=== PATIENT | female | born 1960 | race Caucasian/White ===

== ENCOUNTER → 2017-04-17 | Outpatient (CLI) | payer OTHER ==
[~2017-04-17] MED LIST: ASPIRIN81 M2 PO; IMDUR60 MG PO; KEFLEX500 MG PO; NORVASC5 MG PO; OYSTER CAL 500500 MG PO; XANAX0.25 MG PO; ZOCOR80 MG PO
== END | disposition home or self-care (01) ==
LOC: MAMMO 07:25
DX: Z12.31 Encounter for screening mammogram for malignant neoplasm of breast (principal)

== ENCOUNTER 2018-01-05 15:48 | Emergency (ER) | payer OTHER ==
[~2018-01-05] VITALS: Ht 170.1 cm; Wt 63.5 kg
[2018-01-05 15:48] VITALS: BP 151/68
[2018-01-05] MEDS ORDERED: DOXYCYCLINE100 M3 PO (16:06)
== END 2018-01-05 16:06 | disposition home or self-care (01) ==
LOC: ED 15:48
DX: S10.96XA Insect bite of unspecified part of neck, initial encounter (principal); Z79.82 Long term (current) use of aspirin; Z79.899 Other long term (current) drug therapy; W57.XXXA Bitten or stung by nonvenomous insect and other nonvenomous arthropods, initial encounter; Y93.89 Activity, other specified; Y92.89 Other specified places as the place of occurrence of the external cause; Y99.8 Other external cause status

== ENCOUNTER → 2018-03-31 | Outpatient (CLI) | payer SELFPAY ==
[~2018-03-31] MED LIST changes: +DOXYCYCLINE100 M3 PO
== END | disposition home or self-care (01) ==
LOC: RAD 15:16
DX: M43.16 Spondylolisthesis, lumbar region (principal); M25.551 Pain in right hip; M54.41 Lumbago with sciatica, right side; Z91.81 History of falling

== ENCOUNTER → 2020-03-28 | Outpatient (CLI) | payer BC | END | disposition home or self-care (01) | LOC: MAMMO 08:15 | PROVIDERS: ATTEND Family Medicine | DX: Z12.31 Encounter for screening mammogram for malignant neoplasm of breast (principal); N64.89 Other specified disorders of breast ==

== ENCOUNTER → 2020-05-02 | Outpatient (CLI) | payer BC ==
[~2020-05-02] MED LIST changes: +LIPITOR20 MG PO
== END | disposition home or self-care (01) ==
LOC: COVID19 07:56
PROVIDERS: ATTEND Surgery
DX: Z01.812 Encounter for preprocedural laboratory examination (principal); Z20.822 Contact with and (suspected) exposure to COVID-19

== ENCOUNTER → 2020-05-06 | Day surgery (SDC) | payer BC ==
[~2020-05-06] VITALS: Ht 170.1 cm; Wt 59.0 kg
[2020-05-06 06:42] VITALS: BP 138/78
[2020-05-06 07:52] VITALS: BP 128/62
[2020-05-06 08:07] VITALS: BP 134/74
[2020-05-06 08:20] VITALS: BP 147/78
== END ==
LOC: SDC 05-03 08:45
PROVIDERS: ATTEND Surgery
DX: Z12.11 Encounter for screening for malignant neoplasm of colon (principal); D12.8 Benign neoplasm of rectum; K57.30 Diverticulosis of large intestine without perforation or abscess without bleeding; I25.2 Old myocardial infarction; I10 Essential (primary) hypertension; J45.909 Unspecified asthma, uncomplicated; F17.210 Nicotine dependence, cigarettes, uncomplicated; Z79.82 Long term (current) use of aspirin; Z79.899 Other long term (current) drug therapy

== ENCOUNTER → 2021-04-19 | Outpatient (CLI) | payer OTHER | END | disposition home or self-care (01) | LOC: MAMMO 09:12 | PROVIDERS: ATTEND Family Medicine | DX: Z12.31 Encounter for screening mammogram for malignant neoplasm of breast (principal); N64.89 Other specified disorders of breast ==

== ENCOUNTER 2021-07-10 05:56 | Emergency (ER) | payer OTHER ==
[~2021-07-10] VITALS: Ht 170.1 cm; Wt 65.8 kg
[2021-07-10 06:01] VITALS: BP 177/92
[2021-07-10] MEDS ORDERED: METHOCARBAMOL500 M1 PO (06:17)
[2021-07-10] MEDS ORDERED: NAPROXEN250 MG PO (06:17)
== END 2021-07-10 06:44 | disposition home or self-care (01) ==
LOC: ED 05:56
DX: S39.012A Strain of muscle, fascia and tendon of lower back, initial encounter (principal); Z79.82 Long term (current) use of aspirin; Z79.899 Other long term (current) drug therapy; X50.1XXA Overexertion from prolonged static or awkward postures, initial encounter; Y93.89 Activity, other specified; Y92.69 Other specified industrial and construction area as the place of occurrence of the external cause; Y99.9 Unspecified external cause status

== ENCOUNTER → 2021-07-24 | Outpatient (CLI) | payer OTHER ==
[~2021-07-24] MED LIST changes: +METHOCARBAMOL500 M1 PO; +NAPROXEN250 MG PO
== END | disposition home or self-care (01) ==
LOC: RAD 09:57
PROVIDERS: ATTEND Family Medicine
DX: M47.816 Spondylosis without myelopathy or radiculopathy, lumbar region (principal); M25.78 Osteophyte, vertebrae; M51.36 Other intervertebral disc degeneration, lumbar region; M53.3 Sacrococcygeal disorders, not elsewhere classified

== ENCOUNTER → 2022-04-30 | Outpatient (CLI) | payer OTHER | END | disposition home or self-care (01) | LOC: MAMMO 01:37 | PROVIDERS: ATTEND Family Medicine | DX: Z12.31 Encounter for screening mammogram for malignant neoplasm of breast (principal) ==

== ENCOUNTER → 2022-05-17 | Outpatient (CLI) | payer OTHER | END | disposition home or self-care (01) | LOC: MAMMO 00:19 | PROVIDERS: ATTEND Family Medicine | DX: N63.10 Unspecified lump in the right breast, unspecified quadrant (principal); R92.8 Other abnormal and inconclusive findings on diagnostic imaging of breast; R92.1 Mammographic calcification found on diagnostic imaging of breast ==